=== PATIENT | male | born 1990 | race Hispanic/Latino ===

== ENCOUNTER 2020-07-02 13:44 | Outpatient (CLI) | payer BC ==
--- NOTE | 2020-07-02 15:23 | MRI ---
MR CERVICAL SPINE WITHOUT CONTRAST INDICATION: 29-year-old male with neck pain and left-sided numbness for 3 to 4 months TECHNIQUE: Multiplanar multisequence MR images were obtained of the cervical spine without contrast. COMPARISON: None FINDINGS: Posterior fossa: Within normal limits. Bone marrow signal intensity: Normal Spinal alignment: Normal. Craniocervical junction: Normal appearing. Prevertebral and perivertebral soft tissues: Visualized soft tissues appear within normal limits. Vertebral levels: C2-C3: No appreciable central canal or neuroforaminal narrowing. C3-4: No appreciable central canal or neuroforaminal narrowing. C4-5: No appreciable central canal or neuroforaminal narrowing. C5-C6: No appreciable central canal or neuroforaminal narrowing. C6-C7: No appreciable central canal or neuroforaminal narrowing. C7-T1: No appreciable central canal or neuroforaminal narrowing. IMPRESSION: 1. No appreciable central canal or neuroforaminal narrowing.
--- NOTE | 2020-07-02 15:46 | MRI ---
MR the lumbar spine without contrast INDICATION: Low back pain with radiculopathy COMPARISON: None. TECHNIQUE: Multiplanar multisequence MR images were obtained of lumbar spine without IV contrast. FINDINGS: Bone marrow: Bone marrow signal intensity appears within normal limits. Distal spinal cord and conus: Normal. The conus seen to terminate at T12-L1. Visualized retroperitoneum and paraspinal soft tissues: Normal. Vertebral levels: L5-S1: No appreciable central canal or neuroforaminal narrowing.. L4-5: No appreciable central canal or neuroforaminal narrowing. L3-4: No appreciable central canal or neuroforaminal narrowing. L2-3: No appreciable central canal or neuroforaminal narrowing. L1-L2: No appreciable central canal or neuroforaminal narrowing. T12-L1: No appreciable central canal or neuroforaminal narrowing. IMPRESSION: 1. No appreciable central canal or neuroforaminal narrowing.
== END 2020-07-02 13:45 | disposition home or self-care (01) ==
LOC: BICMRI 13:44
PROVIDERS: ATTEND Family Medicine
DX: M54.16 Radiculopathy, lumbar region (principal); M54.2 Cervicalgia; R20.2 Paresthesia of skin
CPT/HCPCS: 72141; 72148